=== PATIENT | male | born 1965 | race Caucasian/White ===

== ENCOUNTER 2023-02-11 16:46 | Emergency (ER) | payer OTHER ==
[2023-02-11] MEDS ORDERED: Ketorolac 30 MG/ML SDV IM ONE (17:56)
[2023-02-11] MEDS ORDERED: HYDROmorphone 1 MG/ML Syringe IM ONE (19:22)
== END 2023-02-11 19:41 | disposition home or self-care (01) ==
LOC: JP.ED 16:46
DX: S32.019A Unspecified fracture of first lumbar vertebra, initial encounter for closed fracture (principal); S32.029A Unspecified fracture of second lumbar vertebra, initial encounter for closed fracture; S32.039A Unspecified fracture of third lumbar vertebra, initial encounter for closed fracture; V89.2XXA Person injured in unspecified motor-vehicle accident, traffic, initial encounter; Y92.410 Unspecified street and highway as the place of occurrence of the external cause
CPT/HCPCS: 72131; 76377; 96372; 99283; J1170; J1885